=== PATIENT | female | born 1970 | race Two or more races ===

== ENCOUNTER 2018-05-27 06:52 | Inpatient (IN) | payer OTHER ==
[~2018-05-27] VITALS: Ht 165.1 cm; Wt 90.5 kg
[2018-05-27] VITALS (11 sets, daily range): BP systolic 59–126; BP diastolic 18–81
[~2018-05-27 06:52] MED LIST: DOXE100C4 PO; GABA300C10 PO; INSU70IN9 SC; INSUINJ; METF-372 PO
[2018-05-27] MEDS ORDERED: IBUPROFEN 800 MG TAB PO ONE (07:30)
[2018-05-27] MEDS ORDERED: ACETAMINOPHEN 500 MG TAB PO ONE (07:30)
[2018-05-27] MEDS ORDERED: SODIUM CHLORIDE 0.9% 1,000 ML IV ONE ×3 (07:49→10:45)
[2018-05-27] MEDS ORDERED: InsuLIN REG 1unit/0.01ml Soln (100units/ml) IV ONE (08:00)
[2018-05-27 08:36] LABS: Urine Blood 3+ /uL (Negative); Urine Specific Gravity 1.015 (1.001-1.035); Urine WBC 754 /hpf (0 - 5); Urine WBC Clumps PRESENT /hpf (None Seen)
[2018-05-27 08:38] LABS: Basophils # (auto) 0 uL; Basophils % (auto) 0.1 % (0.0-2.0); Eosinophils # (auto) 0.1 uL; Eosinophils % (auto) 1.1 % (0.0-7.0); Hematocrit 31.9 % (36.0-46.0); Lymphocytes # (auto) 0.6 uL; Lymphocytes % (auto) 7.7 % (10.0-50.0); Mean Corpuscular Hemoglobin 27.8 pg (28.0-32.0); Mean Corpuscular Hgb Conc. 34.7 g/dL (32.0-36.0); Mean Corpuscular Volume 80.2 fL (80.0-100.0); Monocytes # (auto) 0.3 uL; Neutrophils # (auto) 7.1 uL; Neutrophils % (auto) 87.1 % (37.0-80.0); Platelet Count (auto) 212 10^3/uL (140-450); Red Blood Cells 3.97 10^6/uL (4.0-5.20); White Blood Cell 8.1 10^3/uL (4.4-10.8)
[2018-05-27 08:49] LABS: Urine Bacteria MANY /hpf (None Seen)
[2018-05-27 08:55] LABS: Alanine Aminotransferase 15 U/L (13-56); Albumin 3.2 g/dL (3.4-5.0); Anion Gap 12 (5-15); Aspartate Aminotransferase 14 U/L (15-37); BUN/Creatinine Ratio 15.7; Blood Urea Nitrogen 24 mg/dL (7-18); Calcium 7.5 mg/dL (8.5-10.1); Carbon Dioxide 22 mmol/L (21-32); Chloride 101 mmol/L (98-107); GFR African American 47 mL/min; GFR Non-African American 39 mL/min; Glucose 364 mg/dL (74-106); Magnesium 1.9 mg/dL (1.6-2.6); Potassium 4.2 mmol/L (3.5-5.1); Sodium 135 mmol/L (136-145)
[2018-05-27 08:59] LABS: Lactic Acid w/Reflex 4.1 mmol/L (0.4-2.0)
[2018-05-27] MEDS ORDERED: PIPERACILLIN-TAZOB 3.375GM 100 ML IV ONE (09:00)
[2018-05-27 09:01] LABS: Alkaline Phosphatase 137 U/L (45-117); Bilirubin, Total 0.5 mg/dL (0.2-1.0); Total Protein 7.4 g/dL (6.4-8.2)
[2018-05-27] MEDS: SODIUM CHLORIDE 0.9% 1,000 ML IV ONE ×2 (09:07→10:18)
[2018-05-27] MEDS ORDERED: KETOROLAC TROMETH 30 MG/ML 1ML VIAL IV ONE (09:30)
[2018-05-27] MEDS ORDERED: cefTRIAXone 1GM/10ml IVPUSH 10 ML IV ONE (10:15)
[2018-05-27] MEDS ORDERED: SODIUM CHLORIDE 0.9% 1,000 ML IV SCH (10:38)
[2018-05-27] MEDS ORDERED: ACETAMINOPHEN 325 MG TAB PO PRN (10:45)
[2018-05-27] MEDS ORDERED: DOCUSATE SOD 100 MG CAP PO PRN (10:45)
[2018-05-27] MEDS ORDERED: VANCOMYCIN PER PHARMACY 0 MG IV SCH (10:45)
[2018-05-27] MEDS ORDERED: DEXTROSE (50%) 50ML SYRG IV PRN (10:45)
[2018-05-27] MEDS ORDERED: hydrOXYzine HCL 10 MG TAB PO PRN (10:45)
[2018-05-27] MEDS ORDERED: NITROGLYCERIN 0.4 MG SL TAB SL PRN (10:45)
[2018-05-27] MEDS ORDERED: FAMOTIDINE 20 MG TAB PO ONE (11:15)
[2018-05-27] MEDS: POTASSIUM CHL 20MEQ/100ML 100 ML IV SCH ×2 (11:19→11:59)
[2018-05-27] MEDS: ACCU-CHEK COMFORT CURVE STRIP VI SCH ×4 (11:50→23:58)
[2018-05-27] MEDS ORDERED: InsuLIN REG 1unit/0.01ml Soln (100units/ml) ONE (11:53)
[2018-05-27] MEDS: SODIUM CHLORIDE 0.9% 1,000 ML IV SCH ×2 (11:58→19:55)
[2018-05-27] MEDS: InsuLIN REG 1unit/0.01ml Soln (100units/ml) SC SCH ×4 (11:58→23:58)
[2018-05-27] MEDS ORDERED: FAMOTIDINE 20 MG TAB ONE (12:03)
[2018-05-27] MEDS: VANCOMYCIN 1GM/250ML 250 ML IV SCH (12:09)
[2018-05-27] MEDS: GABAPENTIN 300 MG CAP PO SCH ×2 (14:00→21:45)
[2018-05-27] MEDS ORDERED: LORazepam 2MG/ML-1ML VIAL ONE (15:25)
[2018-05-27] MEDS: ONDANSETRON HCL 4 MG/2 ML VIAL IV PRN (15:39)
[2018-05-27] MEDS: ACETAMINOPHEN 325 MG TAB PO PRN (17:02)
[2018-05-27] MEDS: HYDROcodone-ACET 5/325MG TAB PO PRN (19:50)
[2018-05-27] MEDS: FAMOTIDINE 20 MG TAB PO SCH (21:45)
[2018-05-27] MEDS: TEMAZEPAM 15 MG CAP PO PRN (21:45)
[2018-05-27] MEDS: INSULIN LANTUS (GLARGINE) 1 /0.01ml (100units/ml) SC SCH (21:45)
[2018-05-28] VITALS (12 sets, daily range): BP systolic 79–147; BP diastolic 44–66
[2018-05-28] MEDS: ACCU-CHEK COMFORT CURVE STRIP VI SCH ×5 (04:00→21:53)
[2018-05-28] MEDS: InsuLIN REG 1unit/0.01ml Soln (100units/ml) SC SCH ×5 (04:01→22:01)
[2018-05-28] MEDS: SODIUM CHLORIDE 0.9% 1,000 ML IV SCH ×2 (04:01→13:46)
[2018-05-28] MEDS: HYDROcodone-ACET 5/325MG TAB PO PRN ×2 (04:03→09:30)
[2018-05-28] MEDS: GABAPENTIN 300 MG CAP PO SCH ×3 (05:46→20:30)
[2018-05-28 07:02] LABS: Albumin 2.1 g/dL (3.4-5.0); Calcium 6.9 mg/dL (8.5-10.1); Potassium 4.4 mmol/L (3.5-5.1)
[2018-05-28 07:07] LABS: BUN/Creatinine Ratio 21.1; Bilirubin, Total 0.4 mg/dL (0.2-1.0); Total Protein 5.9 g/dL (6.4-8.2)
[2018-05-28 07:10] LABS: Basophils # (auto) 0 uL; Basophils % (auto) 0.2 % (0.0-2.0); Eosinophils # (auto) 0.1 uL; Eosinophils % (auto) 1.1 % (0.0-7.0); Hematocrit 27.1 % (36.0-46.0); Lymphocytes # (auto) 2.2 uL; Lymphocytes % (auto) 16.3 % (10.0-50.0); Mean Corpuscular Hemoglobin 27.3 pg (28.0-32.0); Mean Corpuscular Hgb Conc. 33.3 g/dL (32.0-36.0); Mean Corpuscular Volume 81.8 fL (80.0-100.0); Monocytes # (auto) 0.9 uL; Monocytes % (auto) 7.1 % (0.0-12.0); Neutrophils % (auto) 75.3 % (37.0-80.0); Platelet Count (auto) 145 10^3/uL (140-450); Red Blood Cells 3.31 10^6/uL (4.0-5.20); Red Cell Distribution Width 14.5 % (11.8-14.3); White Blood Cell 13.3 10^3/uL (4.4-10.8)
[2018-05-28] MEDS ORDERED: cefTRIAXone 1GM/10ml IVPUSH 10 ML IV SCH (09:00)
[2018-05-28] MEDS ORDERED: cefTRIAXone 1GM/50ML D5W 50 ML IV ONE (09:25)
[2018-05-28] MEDS: MULTIPLE VITAMIN TAB PO SCH (09:29)
[2018-05-28] MEDS: FAMOTIDINE 20 MG TAB PO SCH ×2 (09:29→20:30)
[2018-05-28] MEDS: DOXEPIN 100 MG PO SCH (09:30)
[2018-05-28] MEDS: ACETAMINOPHEN 325 MG TAB PO PRN ×2 (11:48→16:59)
[2018-05-28] MEDS: VANCOMYCIN 1GM/250ML 250 ML IV SCH (11:48)
[2018-05-28] MEDS ORDERED: DEXTROSE (50%) 50ML SYRG IV PRN (13:00)
[2018-05-28] MEDS: LORazepam 2MG/ML-1ML VIAL IV PRN (17:42)
[2018-05-28] MEDS ORDERED: INSULIN 70/30 1unit/0.01ml Susp (100units/ml) SC SCH (18:00)
[2018-05-28] MEDS ORDERED: TYLENOL 1000 MG IV ONE (20:00)
[2018-05-28] MEDS ORDERED: ACETAMINOPHEN IV 100 ML IV ONE (20:30)
[2018-05-28] MEDS: INSULIN LANTUS (GLARGINE) 1 /0.01ml (100units/ml) SC SCH (22:01)
[2018-05-28] MEDS ORDERED: ALBUMIN 5% 250 ML IV ONE ×2 (22:30→23:00)
[2018-05-28] MEDS ORDERED: IBUPROFEN 800 MG TAB PO ONE (23:00)
[2018-05-29] VITALS: BP 122/88
[2018-05-29 00:30] VITALS: BP 101/67
[2018-05-29 04:00] VITALS: BP 109/73
[2018-05-29 04:55] LABS: Basophils # (auto) 0 uL; Eosinophils # (auto) 0.1 uL; Hemoglobin 7.8 g/dL (12.2-16.2); Monocytes # (auto) 0.7 uL; Neutrophils # (auto) 5.7 uL; Red Blood Cells 2.78 10^6/uL (4.0-5.20)
[2018-05-29 04:56] LABS: Basophils % (auto) 0.2 % (0.0-2.0); Eosinophils % (auto) 1.7 % (0.0-7.0); Hematocrit 22.9 % (36.0-46.0); Lymphocytes # (auto) 1.5 uL; Lymphocytes % (auto) 19.1 % (10.0-50.0); Mean Corpuscular Volume 82.4 fL (80.0-100.0); Monocytes % (auto) 8.5 % (0.0-12.0); Neutrophils % (auto) 70.5 % (37.0-80.0); Red Cell Distribution Width 14.5 % (11.8-14.3)
[2018-05-29 04:57] LABS: Platelet Count (auto) 131 10^3/uL (140-450)
[2018-05-29 05:17] LABS: Albumin 2.3 g/dL (3.4-5.0); Calcium 6.9 mg/dL (8.5-10.1); Potassium 4.3 mmol/L (3.5-5.1)
[2018-05-29 05:19] LABS: Bilirubin, Total 0.3 mg/dL (0.2-1.0); Total Protein 5.8 g/dL (6.4-8.2)
[2018-05-29] MEDS: GABAPENTIN 300 MG CAP PO SCH ×3 (06:00→22:10)
[2018-05-29] MEDS: InsuLIN REG 1unit/0.01ml Soln (100units/ml) SC SCH ×4 (07:00→22:00)
[2018-05-29] MEDS: ACCU-CHEK COMFORT CURVE STRIP VI SCH ×4 (07:00→22:11)
[2018-05-29] MEDS: FAMOTIDINE 20 MG TAB PO SCH ×2 (09:37→22:11)
[2018-05-29] MEDS: cefTRIAXone 1GM/50ML D5W 50 ML IV SCH (09:37)
[2018-05-29] MEDS: MULTIPLE VITAMIN TAB PO SCH (09:37)
[2018-05-29] MEDS: SODIUM CHLORIDE 0.9% 1,000 ML IV SCH ×3 (09:38→20:07)
[2018-05-29] MEDS: DOXEPIN 100 MG PO SCH (09:38)
[2018-05-29 11:51] VITALS: BP 148/65
[2018-05-29] MEDS: VANCOMYCIN 1GM/250ML 250 ML IV SCH (12:30)
[2018-05-29 13:23] LABS: % Iron Saturation 3.1 % (15-50)
[2018-05-29] MEDS: LORazepam 2MG/ML-1ML VIAL IV PRN ×2 (13:27→22:22)
[2018-05-29] MEDS: HYDROcodone-ACET 5/325MG TAB PO PRN (17:17)
[2018-05-29] MEDS: FERROUS SULFATE 325 MG TAB PO SCH (17:43)
[2018-05-29] MEDS: ACETAMINOPHEN 325 MG TAB PO PRN (17:43)
[2018-05-29 18:49] LABS: Basophils # (auto) 0 uL; Basophils % (auto) 0.3 % (0.0-2.0); Eosinophils # (auto) 0.1 uL; Eosinophils % (auto) 1.4 % (0.0-7.0); Hematocrit 26.4 % (36.0-46.0); Lymphocytes # (auto) 1.1 uL; Lymphocytes % (auto) 14.2 % (10.0-50.0); Mean Corpuscular Hemoglobin 28.1 pg (28.0-32.0); Mean Corpuscular Hgb Conc. 34.2 g/dL (32.0-36.0); Mean Corpuscular Volume 82.2 fL (80.0-100.0); Monocytes # (auto) 0.6 uL; Monocytes % (auto) 8.2 % (0.0-12.0); Neutrophils # (auto) 5.7 uL; Neutrophils % (auto) 75.9 % (37.0-80.0); Platelet Count (auto) 167 10^3/uL (140-450); Red Blood Cells 3.21 10^6/uL (4.0-5.20); Red Cell Distribution Width 14.5 % (11.8-14.3); White Blood Cell 7.6 10^3/uL (4.4-10.8)
[2018-05-29 19:10] LABS: Alanine Aminotransferase 22 U/L (13-56); Albumin 2.6 g/dL (3.4-5.0); Anion Gap 10 (5-15); Aspartate Aminotransferase 24 U/L (15-37); BUN/Creatinine Ratio 17.3; Blood Urea Nitrogen 17 mg/dL (7-18); Calcium 7.7 mg/dL (8.5-10.1); Carbon Dioxide 21 mmol/L (21-32); Chloride 110 mmol/L (98-107); GFR African American 79 mL/min; GFR Non-African American 65 mL/min; Glucose 170 mg/dL (74-106); Potassium 4.7 mmol/L (3.5-5.1); Sodium 141 mmol/L (136-145)
[2018-05-29 19:18] LABS: Alkaline Phosphatase 171 U/L (45-117); Bilirubin, Total 0.3 mg/dL (0.2-1.0); Total Protein 6.6 g/dL (6.4-8.2)
[2018-05-29 19:45] VITALS: BP 144/90
[2018-05-29] MEDS: INSULIN LANTUS (GLARGINE) 1 /0.01ml (100units/ml) SC SCH (22:11)
[2018-05-30] VITALS: BP 147/90
[2018-05-30] MEDS: TEMAZEPAM 15 MG CAP PO PRN ×2 (01:24→22:06)
[2018-05-30] MEDS: HYDROcodone-ACET 5/325MG TAB PO PRN ×2 (01:25→19:55)
[2018-05-30] MEDS ORDERED: LABETALOL HCL 5 MG/ML ML 20ML VIAL IV SCH (02:15)
[2018-05-30] MEDS ORDERED: LABETALOL HCL 5 MG/ML ML 20ML VIAL IV ONE (02:16)
[2018-05-30] MEDS: SODIUM CHLORIDE 0.9% 1,000 ML IV SCH (03:40)
[2018-05-30 04:00] VITALS: BP 113/73
[2018-05-30] MEDS: ACCU-CHEK COMFORT CURVE STRIP VI SCH ×4 (06:11→22:11)
[2018-05-30] MEDS: InsuLIN REG 1unit/0.01ml Soln (100units/ml) SC SCH ×4 (06:11→22:00)
[2018-05-30] MEDS: GABAPENTIN 300 MG CAP PO SCH ×3 (06:15→22:07)
[2018-05-30 06:22] LABS: Albumin 2.3 g/dL (3.4-5.0); Calcium 7.7 mg/dL (8.5-10.1); Potassium 4.1 mmol/L (3.5-5.1)
[2018-05-30 06:28] LABS: BUN/Creatinine Ratio 15.5; Bilirubin, Total 0.3 mg/dL (0.2-1.0); Total Protein 6.3 g/dL (6.4-8.2)
[2018-05-30 08:00] VITALS: BP 131/78
[2018-05-30] MEDS: MULTIPLE VITAMIN TAB PO SCH (09:41)
[2018-05-30] MEDS: FAMOTIDINE 20 MG TAB PO SCH ×2 (09:41→22:06)
[2018-05-30] MEDS: cefTRIAXone 1GM/50ML D5W 50 ML IV SCH (09:41)
[2018-05-30] MEDS: FERROUS SULFATE 325 MG TAB PO SCH ×2 (09:41→18:12)
[2018-05-30] MEDS: DOXEPIN HCL 25 MG CAPSULE PO SCH (09:43)
[2018-05-30] MEDS: ACETAMINOPHEN 325 MG TAB PO PRN (10:50)
[2018-05-30] MEDS: ONDANSETRON HCL 4 MG/2 ML VIAL IV PRN (10:50)
[2018-05-30 12:00] VITALS: BP 125/70
[2018-05-30] MEDS ORDERED: LISINOPRIL 5 MG TAB PO ONE (12:00)
[2018-05-30] MEDS: VANCOMYCIN 1GM/250ML 250 ML IV SCH (13:03)
[2018-05-30 16:00] VITALS: BP 110/66
[2018-05-30 20:00] VITALS: BP 138/82
[2018-05-30] MEDS: METOPROLOL TARTRATE 25 MG TAB PO SCH (20:01)
[2018-05-30] MEDS: INSULIN LANTUS (GLARGINE) 1 /0.01ml (100units/ml) SC SCH (22:08)
[2018-05-31] VITALS: BP 92/65
[2018-05-31] MEDS: VANCOMYCIN 1GM/250ML 250 ML IV SCH (01:00)
[2018-05-31 04:00] VITALS: BP 128/79
[2018-05-31] MEDS: GABAPENTIN 300 MG CAP PO SCH ×2 (06:50→13:47)
[2018-05-31] MEDS: HYDROcodone-ACET 5/325MG TAB PO PRN (06:50)
[2018-05-31] MEDS: InsuLIN REG 1unit/0.01ml Soln (100units/ml) SC SCH ×2 (06:51→11:30)
[2018-05-31] MEDS: ACCU-CHEK COMFORT CURVE STRIP VI SCH ×2 (06:51→11:30)
[2018-05-31 08:00] VITALS: BP 120/75
[2018-05-31] MEDS: FERROUS SULFATE 325 MG TAB PO SCH (09:14)
[2018-05-31] MEDS: cefTRIAXone 1GM/50ML D5W 50 ML IV SCH (09:14)
[2018-05-31] MEDS ORDERED: MULTTAB99 PO (09:42)
[2018-05-31] MEDS ORDERED: NITR100C44 PO (09:42)
[2018-05-31] MEDS ORDERED: LISI-275 PO (09:42)
[2018-05-31] MEDS ORDERED: MET25T PO (09:42)
[2018-05-31] MEDS: MULTIPLE VITAMIN TAB PO SCH (09:53)
[2018-05-31] MEDS: DOXEPIN HCL 25 MG CAPSULE PO SCH (09:53)
[2018-05-31] MEDS: FAMOTIDINE 20 MG TAB PO SCH (09:53)
[2018-05-31] MEDS: METOPROLOL TARTRATE 25 MG TAB PO SCH (09:54)
[2018-05-31] MEDS ORDERED: FER325T PO (09:54)
[2018-05-31] MEDS ORDERED: LISINOPRIL 5 MG TAB PO SCH (10:00)
[2018-05-31] MEDS ORDERED: NITROFURANTOIN (MONO) 100 mg CAP PO SCH (10:00)
[2018-05-31 11:59] VITALS: BP 103/81
[2018-05-31 15:49] VITALS: BP 113/77
[2018-05-31 16:10] VITALS: BP 113/77
== END 2018-05-31 18:04 | disposition home or self-care (01) | DRG 720 ==
LOC: EDBD 06:52 → ER 06:52 → TELE 06:53 → ER 10:12 → DOU IN ICU 11:26
PROVIDERS: ADMIT Internal Medicine; ATTEND Internal Medicine
DX: A41.9 Sepsis, unspecified organism (principal); N17.0 Acute kidney failure with tubular necrosis; E44.0 Moderate protein-calorie malnutrition; E11.21 Type 2 diabetes mellitus with diabetic nephropathy; E11.40 Type 2 diabetes mellitus with diabetic neuropathy, unspecified; N18.4 Chronic kidney disease, stage 4 (severe); E11.65 Type 2 diabetes mellitus with hyperglycemia; E44.1 Mild protein-calorie malnutrition; E83.51 Hypocalcemia; E87.1 Hypo-osmolality and hyponatremia; D63.8 Anemia in other chronic diseases classified elsewhere; E11.22 Type 2 diabetes mellitus with diabetic chronic kidney disease; E66.9 Obesity, unspecified; N13.6 Pyonephrosis; E78.5 Hyperlipidemia, unspecified; F41.9 Anxiety disorder, unspecified; N18.9 Chronic kidney disease, unspecified; Z79.4 Long term (current) use of insulin; F17.210 Nicotine dependence, cigarettes, uncomplicated; N39.0 Urinary tract infection, site not specified; F41.1 Generalized anxiety disorder; I12.9 Hypertensive chronic kidney disease with stage 1 through stage 4 chronic kidney disease, or unspecified chronic kidney disease; Z82.49 Family history of ischemic heart disease and other diseases of the circulatory system; Z83.3 Family history of diabetes mellitus; Z88.8 Allergy status to other drugs, medicaments and biological substances; Z88.6 Allergy status to analgesic agent; Z68.33 Body mass index [BMI] 33.0-33.9, adult
CPT/HCPCS: 36415; 71046; 76775; 80053; 80202; 81001; 82010; 82962; 83036; 83540; 83550; 83605; 83615; 83735; 83880; 84443; 84484; 85025; 87040; 87081; 87086; 93005; 96361; 96365; 96375; J0131; J0696; J1815; J1885; J2405; J2543

== ENCOUNTER 2020-07-02 11:45 | Emergency (ER) | payer MEDICAID ==
[~2020-07-02] VITALS: Ht 170.2 cm; Wt 68.0 kg
[~2020-07-02 11:45] MED LIST changes: +FER325T PO; +INSLANTI SC; -INSU70IN9 SC; +LEVO-28 PO; +LISI-275 PO; +MET25T PO; +MULTTAB99 PO; +ONDA-144 PO
[2020-07-02 14:28] VITALS: BP 110/82
== END 2020-07-02 14:42 | disposition home or self-care (01) ==
LOC: ER 11:45
DX: J20.9 Acute bronchitis, unspecified (principal); R51.9 Headache, unspecified; E11.9 Type 2 diabetes mellitus without complications; E78.5 Hyperlipidemia, unspecified; I10 Essential (primary) hypertension; Z98.51 Tubal ligation status; Z20.828 Contact with and (suspected) exposure to other viral communicable diseases
CPT/HCPCS: 36415; 71045; 87426